=== PATIENT | male | born 1975 | race Two or more races ===

== ENCOUNTER 2020-09-07 19:05 | Emergency (ER) | payer OTHER ==
[~2020-09-07] VITALS: Ht 185.4 cm; Wt 108.9 kg
[2020-09-07 19:56] LABS: BASOPHILS # (AUTO) 0.1 /CMM (0.0-0.2); BASOPHILS % (AUTO) 0.9 % (0.0-2.0); EOSINOPHILS % (AUTO) 3.2 % (0.0-6.0); HEMATOCRIT 33 % (39-51); HEMOGLOBIN 11.4 g/dL (13.5-17.5); LYMPHOCYTES # (AUTO) 1.7 /CMM (0.8-4.8); MEAN CORPUSCULAR HGB CONC 34 g/dl (31.0-36.0); MEAN CORPUSCULAR VOLUME 97 fL (80-96); MONOCYTES # (AUTO) 0.8 /CMM (0.1-1.30); MONOCYTES % (AUTO) 11.4 % (2.0-12.0); NEUTROPHILS # (AUTO) 4.3 /CMM (1.8-8.9); NEUTROPHILS % (AUTO) 60.5 % (43.0-81.0); PLATELET COUNT (AUTO) 330 /CMM (150-450); RED BLOOD CELL COUNT(AUTO) 3.44 MIL/uL (4.5-6.0); WHITE BLOOD COUNT (AUTO) 7.1 K/uL (4.3-11.0)
[2020-09-07 20:04] LABS: CALCIUM, SERUM 8.5 mg/dL (8.5-10.1); CARBON DIOXIDE 32 mmol/L (21-32); CHLORIDE 103 mmol/L (98-107); CREATININE 1.2 mg/dL (0.6-1.3); GLUCOSE 94 mg/dL (74-106); POTASSIUM 3.8 mmol/L (3.5-5.1); SODIUM SERUM 142 mmol/L (136-145); UREA NITROGEN, BLOOD 15 mg/dL (7-18)
[2020-09-07 20:10] LABS: ACETAMINOPHEN 5 ug/ml (10-30); ALANINE AMINOTRANSFERASE 26 U/L (12-78); ALBUMIN 3.2 g/dL (3.4-5.0); ALKALINE PHOSPHATASE 74 U/L (46-116); ASPARTATE AMINOTRANSFERASE 24 U/L (15-37); BILIRUBIN,DIRECT 0.1 mg/dL (0.0-0.2); BILIRUBIN,TOTAL 0.3 mg/dL (0.2-1.0); TOTAL PROTEIN, SERUM 6.5 g/dL (6.4-8.2)
[2020-09-07 20:11] LABS: ALCOHOL, BLOOD < 3 mg/dL (0-0)
--- NOTE | 2020-09-07 20:16 | NUR ---
NEHA FROM A HOTEL WHERE POSITIVE COVID PATIENTS STAY. TO ER BED 5. PT IS EYES CLOSE DIFFICULT TO ARROUSE BUT ON IN RESP DISTRESS, BREATHING EVEN AND UNLABORED. SATTING @ 95-96% ON RA. PER EMS REPORT, PT WAS REPORTED TO HAVE TAKEN HEROIN. PT WAS GIVEN NARCAN 2MG INTRANASALLY AND NARCAN 4MG IV. PT IS ALSO REPORTED TO BE COVID POSITIVE AND NEEDS TO GO BACK IF GOING TO BE DISCHARGED. MD WAS AT THE BEDSIDE FOR EVAL.
--- NOTE | 2020-09-07 21:18 | NUR ---
PT I SIN BED SLEEPING. NO DISTRESS NOTED, BREATHING EVEN AND UNLABORED. VSS
--- NOTE | 2020-09-07 21:40 | NUR ---
pt woke up from sleep. pt is aware that he is in a hospital. pt verbalized that he took ativan and pain medication but does not known what is the name. made aware.
[2020-09-07 22:02] LABS: BILIRUBIN,URINE Negative (NEGATIVE); COLOR,URINE YELLOW (YELLOW); LEUKOCYTE ESTERASE ,URINE Negative (NEGATIVE); NITRITE, URINE Negative (NEGATIVE); PH,URINE 5.5 (5.0-8.0); PROTEIN,URINE Negative (NEGATIVE); UGLUCOSE Negative (NEGATIVE); UROBILINOGEN,URINE 0.2 EU/dL (0.2)
--- NOTE | 2020-09-07 23:12 | NUR ---
pt ambulated to bathroom.
[2020-09-07 23:48] VITALS: BP 141/71
--- NOTE | 2020-09-07 23:48 | NUR ---
Patient discharged to home in stable condition. Written and verbal after care instructions given. Patient verbalizes understanding of instruction.IV removed. Catheter intact and site benign. Pressure and 4x4 applied to site. No bleeding noted. Pt ambulatory with a steady gait
== END 2020-09-07 23:51 | disposition home or self-care (01) ==
LOC: ER 19:07
DX: T40.1X1A Poisoning by heroin, accidental (unintentional), initial encounter (principal); U07.1 COVID-19; F31.9 Bipolar disorder, unspecified; Y92.89 Other specified places as the place of occurrence of the external cause
CPT/HCPCS: 36415; 71045-TC; 80048-TC; 80076-TC; 85025-TC; G0480